=== PATIENT | female | born 1980 | race Caucasian/White ===

== ENCOUNTER 2020-05-29 14:33 | Emergency (ER) | payer OTHER, SELFPAY ==
[2020-05-29 14:44] VITALS: BP 130/89; PULSE 83; RESP 16; TEMP 36.5; O2SAT 100
== END 2020-05-29 14:51 | disposition left against medical advice (07) ==
LOC: EXPBETH 14:38
PROVIDERS: Emergency Provider Nurse Practitioner Family
DX: Z53.21 Procedure and treatment not carried out due to patient leaving prior to being seen by health care provider (principal)
CPT/HCPCS: 99199